=== PATIENT | male | born 1940 | race American Indian/Alaskan Native ===

== ENCOUNTER 2018-04-22 20:26 | Inpatient (IN) | payer SELFPAY ==
[~2018-04-22] VITALS: Ht 154.9 cm; Wt 49.9 kg
[2018-04-23] MEDS ORDERED: MORPHINE SULFATE 4 MG/ML CPJ (NOT FOR IM USE) IV STA (01:09)
[2018-04-23] MEDS ORDERED: SODIUM CHLORIDE 0.9% 1,000 ML IV ONE (01:09)
[2018-04-23] MEDS ORDERED: ONDANSETRON HCL 4MG/2ML INJ IV STA (01:09)
[2018-04-23 02:15] LABS: BASOPHILS % 0.3 % (0.0-2.0); EOSINOPHILS % 0.9 % (0.0-5.0); HEMOGLOBIN. 10.3 g/dL (14.0-18.0); LYMPHOCYTES % 23.8 % (20.0-50.0); MEAN CORPUSCULAR HEMOGLOBIN 31.3 pg (28.0-32.0); MEAN CORPUSCULAR VOLUME 91.2 fL (80.0-94.0); MONOCYTES % 6.6 % (2.0-8.0); NEUTROPHILS % 68.4 % (40.0-76.0); PLATELET 468 x1000/uL (130-400); RED BLOOD CELL COUNT 3.29 mill/uL (4.7-6.1); RED CELL DISTRIBUTION WIDTH 13.9 % (11.6-14.6)
[2018-04-23 02:18] LABS: CHLORIDE 93 mEq/L (98-107)
[2018-04-23 02:19] LABS: INR 0.9; PARTIAL THROMBOPLASTIN TIME 25.2 sec (23.4-31.0); PROTHROMBIN TIME 9.5 sec (9.1-11.1)
[2018-04-23] MEDS ORDERED: INSULIN REGULAR (HUMULIN R) UD 100 UNITS/ML SYR SUBCUT ONE (04:00)
[2018-04-23] MEDS ORDERED: INSULIN REGULAR (HUMULIN R) 300UNITS/3ML SUBCUT NR (04:15)
[2018-04-23 08:00] VITALS: BP 99/58
[2018-04-23] MEDS ORDERED: IPRATROPIUM/ALBUTEROL 0.5-3(2.5)MG/3ML NEB INH PRN (08:30)
[2018-04-23] MEDS ORDERED: HYDROCODONE/ACETAMINOPHEN 5/325MG TABLET PO PRN (08:30)
[2018-04-23] MEDS ORDERED: GUAIFENESIN 200MG/10ML SUGAR FREE UDC PO PRN (08:30)
[2018-04-23] MEDS ORDERED: DEXTROSE 50% WATER 50ML SYRINGE IV PRN (08:30)
[2018-04-23] MEDS ORDERED: ONDANSETRON HCL 4MG/2ML INJ IV PRN (08:30)
[2018-04-23] MEDS ORDERED: ACETAMINOPHEN 650MG SUPP PR PRN (08:30)
[2018-04-23] MEDS ORDERED: NA PHOS,M-B/NA PHOS,DI-BA ENEMA 118ML PR PRN (08:30)
[2018-04-23] MEDS ORDERED: MAGNESIUM/ALUMINUM HYDROXIDE/SIMETHICONE 30ML UDC PO PRN (08:30)
[2018-04-23] MEDS ORDERED: DIPHENHYDRAMINE 50MG/ML VIAL IV PRN (08:30)
[2018-04-23] MEDS ORDERED: MORPHINE SULFATE 4 MG/ML CPJ (NOT FOR IM USE) IV PRN (08:30)
[2018-04-23] MEDS ORDERED: DOCUSATE SODIUM 100MG CAPSULE PO PRN (08:30)
[2018-04-23] MEDS ORDERED: ACETAMINOPHEN 650MG/20.3ML UDC GT PRN (08:30)
[2018-04-23] MEDS ORDERED: CLONIDINE 0.1MG TABLET PO PRN ×2 (08:30→15:00)
[2018-04-23] MEDS ORDERED: INSULIN GLARGINE UD 100 UNITS/ML SYR SUBCUT ONE (09:30)
[2018-04-23] MEDS ORDERED: INSULIN REGULAR (HUMULIN R) UD 100 UNITS/ML SYR SUBCUT NR (10:15)
[2018-04-23] MEDS ORDERED: INSULIN GLARGINE UD 100 UNITS/ML SYR SUBCUT NR (11:30)
[2018-04-23 12:00] VITALS: BP 112/49
[2018-04-23] MEDS: BLOOD SUGAR DIAGNOSTIC STRIP TEST SCH ×3 (12:26→21:00)
[2018-04-23] MEDS: INSULIN LISPRO 100 UNITS/ML SUBCUT SCH ×3 (12:50→23:15)
[2018-04-23] MEDS: SODIUM CHLORIDE 0.9% INJ 3ML FLUSH IVF SCH ×2 (14:00→22:40)
[2018-04-23 14:22] VITALS: BP 99/58
[2018-04-23 16:00] VITALS: BP 101/39
[2018-04-23 20:00] VITALS: BP 121/49
[2018-04-23] MEDS: ACETAMINOPHEN 325MG TABLET PO PRN (23:08)
[2018-04-23] MEDS: INSULIN GLARGINE UD 100 UNITS/ML SYR SUBCUT SCH (23:15)
[2018-04-24] VITALS (11 sets, daily range): BP systolic 117–147; BP diastolic 45–71
[2018-04-24] MEDS: BLOOD SUGAR DIAGNOSTIC STRIP TEST SCH ×4 (06:41→21:46)
[2018-04-24] MEDS: SODIUM CHLORIDE 0.9% INJ 3ML FLUSH IVF SCH ×3 (06:41→21:47)
[2018-04-24 06:57] LABS: BASOPHILS % 0.5 % (0.0-2.0); EOSINOPHILS % 1.1 % (0.0-5.0); HEMATOCRIT. 26.4 % (42.0-52.0); HEMOGLOBIN. 8.9 g/dL (14.0-18.0); LYMPHOCYTES % 34.1 % (20.0-50.0); MEAN CORPUSCULAR HEMOGLOBIN 30.5 pg (28.0-32.0); MEAN CORPUSCULAR VOLUME 90.3 fL (80.0-94.0); MEAN PLATELET VOLUME 6.8 fl (7.4-10.4); MONOCYTES % 7.2 % (2.0-8.0); NEUTROPHILS % 57.1 % (40.0-76.0); PLATELET 420 x1000/uL (130-400); RED BLOOD CELL COUNT 2.92 mill/uL (4.7-6.1); RED CELL DISTRIBUTION WIDTH 13.7 % (11.6-14.6)
[2018-04-24] MEDS: INSULIN LISPRO 100 UNITS/ML SUBCUT SCH ×4 (07:50→21:00)
[2018-04-24 07:58] LABS: CHLORIDE 101 mEq/L (98-107)
[2018-04-24 08:14] LABS: CREATINE KINASE 68 IU/L (39-308)
[2018-04-24 08:15] LABS: HDL CHOLESTEROL 32 mg/dL (40-59)
[2018-04-24 08:16] LABS: LDL CHOLESTEROL 68 mg/dL (5-100)
[2018-04-24 08:26] LABS: CREATINE KINASE MB FRACTION 1.3 ng/mL (0.5-3.6)
[2018-04-24] MEDS ORDERED: CEFAZOLIN 1000MG PREMIX 50 ML IV ONE (13:00)
[2018-04-24] MEDS ORDERED: SODIUM BICARBONATE 4% (2.4MEQ) 5ML VIAL IV ONE (13:06)
[2018-04-24] MEDS ORDERED: LIDOCAINE HCL 1% 20ML VIAL (Pyxis) INJ ONE (13:06)
[2018-04-24] MEDS ORDERED: IOHEXOL-300 50 ML BOTTLE IV ONE (13:39)
[2018-04-24] MEDS ORDERED: VANCOMYCIN HCL 500 MG/VIAL ONE (13:47)
[2018-04-24] MEDS: ALBUTEROL (0.083%) 2.5MG/3ML NEB HHN SCH ×3 (13:47→21:31)
[2018-04-24] MEDS ORDERED: BACITRACIN 15GM TUBE TOP ONE (13:48)
[2018-04-24] MEDS ORDERED: FENTANYL CITRATE/PF 50MCG/ML 2ML VIAL ONE (14:42)
[2018-04-24] MEDS ORDERED: ONDANSETRON HCL 4MG/2ML INJ IV PRN (15:15)
[2018-04-24] MEDS ORDERED: HYDROMORPHONE HCL/PF 2MG/ML CPJ IV PRN (15:15)
[2018-04-24] MEDS: CEFAZOLIN 1000MG PREMIX 50 ML IV SCH (21:47)
[2018-04-24] MEDS: INSULIN GLARGINE UD 100 UNITS/ML SYR SUBCUT SCH (21:57)
[2018-04-25] VITALS (10 sets, daily range): BP systolic 99–126; BP diastolic 45–60
[2018-04-25] MEDS: ALBUTEROL (0.083%) 2.5MG/3ML NEB HHN SCH ×3 (01:46→20:42)
[2018-04-25] MEDS: CEFAZOLIN 1000MG PREMIX 50 ML IV SCH (05:13)
[2018-04-25] MEDS: SODIUM CHLORIDE 0.9% INJ 3ML FLUSH IVF SCH ×3 (05:21→21:25)
[2018-04-25] MEDS: GLIPIZIDE 5MG TABLET PO SCH (06:34)
[2018-04-25] MEDS: BLOOD SUGAR DIAGNOSTIC STRIP TEST SCH ×4 (06:47→21:24)
[2018-04-25] MEDS: INSULIN LISPRO 100 UNITS/ML SUBCUT SCH ×4 (08:44→22:32)
[2018-04-25] MEDS: METFORMIN HCL 500MG TABLET PO SCH ×2 (08:44→19:07)
[2018-04-25] MEDS: ACETAMINOPHEN 325MG TABLET PO PRN (13:00)
[2018-04-25 13:36] LABS: BASOPHILS % 0.2 % (0.0-2.0); EOSINOPHILS % 0.7 % (0.0-5.0); HEMATOCRIT. 21.8 % (42.0-52.0); HEMOGLOBIN. 7.3 g/dL (14.0-18.0); MEAN CORPUSCULAR HEMOGLOBIN 30.5 pg (28.0-32.0); MEAN CORPUSCULAR VOLUME 90.9 fL (80.0-94.0); MEAN PLATELET VOLUME 6.3 fl (7.4-10.4); MONOCYTES % 8.3 % (2.0-8.0); NEUTROPHILS % 66.8 % (40.0-76.0); PLATELET 341 x1000/uL (130-400)
[2018-04-25 14:00] LABS: CHLORIDE 99 mEq/L (98-107)
[2018-04-26] MEDS: ACETAMINOPHEN 325MG TABLET PO PRN (00:38)
[2018-04-26] MEDS: ALBUTEROL (0.083%) 2.5MG/3ML NEB HHN SCH ×4 (02:16→22:32)
[2018-04-26 04:00] VITALS: BP 100/40
[2018-04-26] MEDS: GLIPIZIDE 5MG TABLET PO SCH (06:19)
[2018-04-26] MEDS: BLOOD SUGAR DIAGNOSTIC STRIP TEST SCH ×4 (06:20→21:32)
[2018-04-26 07:06] LABS: BASOPHILS % 0.2 % (0.0-2.0); EOSINOPHILS % 0.8 % (0.0-5.0); HEMATOCRIT. 25.4 % (42.0-52.0); HEMOGLOBIN. 8.7 g/dL (14.0-18.0); LYMPHOCYTES % 30.1 % (20.0-50.0); MEAN CORPUSCULAR VOLUME 87.7 fL (80.0-94.0); MEAN PLATELET VOLUME 6.6 fl (7.4-10.4); MONOCYTES % 9.2 % (2.0-8.0); NEUTROPHILS % 59.7 % (40.0-76.0); PLATELET 351 x1000/uL (130-400); RED BLOOD CELL COUNT 2.89 mill/uL (4.7-6.1); RED CELL DISTRIBUTION WIDTH 14.4 % (11.6-14.6)
[2018-04-26 08:00] VITALS: BP 113/53
[2018-04-26] MEDS: METFORMIN HCL 500MG TABLET PO SCH ×2 (08:59→17:33)
[2018-04-26] MEDS: INSULIN LISPRO 100 UNITS/ML SUBCUT SCH ×4 (09:07→21:34)
[2018-04-26 12:00] VITALS: BP 116/50
[2018-04-26 12:06] LABS: CHLORIDE 100 mEq/L (98-107)
[2018-04-26] MEDS: SODIUM CHLORIDE 0.9% INJ 3ML FLUSH IVF SCH ×2 (13:23→22:09)
[2018-04-26 16:00] VITALS: BP 114/58
[2018-04-26] MEDS: WARFARIN SODIUM 1MG TABLET PO SCH (17:44)
[2018-04-26 20:00] VITALS: BP 133/62
[2018-04-27] VITALS: BP 145/47
[2018-04-27] MEDS: ALBUTEROL (0.083%) 2.5MG/3ML NEB HHN SCH ×4 (03:05→22:30)
[2018-04-27 04:00] VITALS: BP 114/52
[2018-04-27] MEDS: SODIUM CHLORIDE 0.9% INJ 3ML FLUSH IVF SCH ×3 (05:09→22:21)
[2018-04-27] MEDS: BLOOD SUGAR DIAGNOSTIC STRIP TEST SCH ×4 (06:33→21:00)
[2018-04-27] MEDS: GLIPIZIDE 5MG TABLET PO SCH (06:42)
[2018-04-27 08:00] VITALS: BP 128/68
[2018-04-27] MEDS: METFORMIN HCL 500MG TABLET PO SCH ×2 (09:30→18:33)
[2018-04-27] MEDS: INSULIN LISPRO 100 UNITS/ML SUBCUT SCH ×4 (09:36→23:05)
[2018-04-27 12:00] VITALS: BP 132/57
[2018-04-27 16:00] VITALS: BP 111/50
[2018-04-27] MEDS: WARFARIN SODIUM 1MG TABLET PO SCH (18:32)
[2018-04-27 20:00] VITALS: BP 111/52
[2018-04-28] MEDS: ALBUTEROL (0.083%) 2.5MG/3ML NEB HHN SCH ×3 (03:01→16:12)
[2018-04-28 04:00] VITALS: BP 113/56
[2018-04-28] MEDS: SODIUM CHLORIDE 0.9% INJ 3ML FLUSH IVF SCH (06:04)
[2018-04-28] MEDS: GLIPIZIDE 5MG TABLET PO SCH (06:35)
[2018-04-28] MEDS: BLOOD SUGAR DIAGNOSTIC STRIP TEST SCH ×2 (06:35→11:43)
[2018-04-28 07:04] LABS: BASOPHILS % 0.5 % (0.0-2.0); EOSINOPHILS % 1.6 % (0.0-5.0); HEMATOCRIT. 29.6 % (42.0-52.0); HEMOGLOBIN. 9.9 g/dL (14.0-18.0); LYMPHOCYTES % 23.4 % (20.0-50.0); MEAN CORPUSCULAR HEMOGLOBIN 29.8 pg (28.0-32.0); MEAN CORPUSCULAR VOLUME 88.9 fL (80.0-94.0); MEAN PLATELET VOLUME 6.7 fl (7.4-10.4); NEUTROPHILS % 64.5 % (40.0-76.0); PLATELET 468 x1000/uL (130-400); RED BLOOD CELL COUNT 3.33 mill/uL (4.7-6.1); RED CELL DISTRIBUTION WIDTH 14.2 % (11.6-14.6)
[2018-04-28 07:57] LABS: CHLORIDE 97 mEq/L (98-107)
[2018-04-28 08:00] VITALS: BP 112/60
[2018-04-28] MEDS: METFORMIN HCL 500MG TABLET PO SCH (08:09)
[2018-04-28] MEDS: INSULIN LISPRO 100 UNITS/ML SUBCUT SCH ×2 (08:15→12:38)
[2018-04-28 12:00] VITALS: BP 105/52
[2018-04-28 12:50] VITALS: BP 105/52
[2018-04-28 16:22] VITALS: BP 125/59
== END 2018-04-28 16:52 | disposition home or self-care (01) | DRG 308 ==
LOC: ER 20:26 → 6EST 04-23 04:27 → ENRESERV 04-23 04:55
PROVIDERS: ADMIT Family Medicine; ATTEND Family Medicine
PROC: 0QS636Z Reposition Right Upper Femur with Intramedullary Internal Fixation Device, Percutaneous Approach (ICD-10-PCS; 2018-04-24)
PROC: 06H03DZ Insertion of Intraluminal Device into Inferior Vena Cava, Percutaneous Approach (ICD-10-PCS; 2018-04-24)
PROC: 30233N1 Transfusion of Nonautologous Red Blood Cells into Peripheral Vein, Percutaneous Approach (ICD-10-PCS; principal; 2018-04-25)
DX: S72.141A Displaced intertrochanteric fracture of right femur, initial encounter for closed fracture (principal); E43 Unspecified severe protein-calorie malnutrition; I82.412 Acute embolism and thrombosis of left femoral vein; E11.65 Type 2 diabetes mellitus with hyperglycemia; D63.8 Anemia in other chronic diseases classified elsewhere; S30.0XXA Contusion of lower back and pelvis, initial encounter; W01.0XXA Fall on same level from slipping, tripping and stumbling without subsequent striking against object, initial encounter; Y93.01 Activity, walking, marching and hiking; Y92.89 Other specified places as the place of occurrence of the external cause; Y99.8 Other external cause status; Z68.20 Body mass index [BMI] 20.0-20.9, adult
CPT/HCPCS: 36415; 37191; 71045; 73502; 73552; 76000; 80048; 80061; 82550; 82553; 82962; 83036; 83735; 84134; 84443; 84484; 85379; 86850; 86870; 86900; 86920; 93005; 93306; 93970; 96361; 96374; 96375; 97163; 97530; 97535; 99285; C1713; C1769; C1880; J0690; J1815; J2270; J2405; J3010; J3370; J3490; J7030; J7040; J7611; P9016; Q9967